=== PATIENT | male | born 1980 | race Caucasian/White ===

== ENCOUNTER 2022-12-04 21:47 | Emergency (ER) | payer BC ==
[2022-12-04 21:57] VITALS: BP 131/84; PULSE 92; RESP 16; TEMP 99.4
[2022-12-04] MEDS ORDERED: SODIUM CHLORIDE 0.9% 1,000 ML IV STA (22:04)
[2022-12-04] MEDS ORDERED: MORPHINE SULFATE 4 MG/ML SYRINGE IVP STA (22:05)
[2022-12-04 22:30] LABS: Basophils % (A) 0 %; Eosinophils # (A) 0.3 k/uL (0-0.7); Eosinophils % (A) 3 %; HCT 47.1 % (39.0-53.0); HGB 16.6 gm/dL (13.0-17.5); Lymphocytes # (A) 2.1 k/uL (1.0-4.8); Lymphocytes % (A) 17 %; MCHC 35.2 g/dL (31.0-37.0); Mean Platelet Volume 6.7; Monocytes # (A) 0.6 k/uL (0-1.0); Monocytes % (A) 5 %; Neutrophils # (A) 9.3 k/uL (1.3-7.7); Neutrophils % (A) 74 %; Platelet Count 238 k/uL (150-450); RBC 5.35 m/uL (4.30-5.90); RDW 12.4 % (11.5-15.5); WBC 12.5 k/uL (3.8-10.6)
[2022-12-04 22:41] LABS: ALT 34 U/L (4-49); AST 45 U/L (17-59); African American GFR (CKD) >90 (>60 ml/min/1.73 sqM); Albumin 4.6 g/dL (3.5-5.0); Alcohol <10 mg/dL; Alkaline Phosphatase 103 U/L (38-126); Anion Gap 7 mmol/L; Blood Urea Nitrogen 17 mg/dL (9-20); Calcium 9.3 mg/dL (8.4-10.2); Carbon Dioxide 32 mmol/L (22-30); Chloride 98 mmol/L (98-107); Glucose 93 mg/dL (74-99); Non-African American GFR(CKD) 89 (>60 ml/min/1.73 sqM); Sodium 137 mmol/L (137-145); Total Bilirubin 0.6 mg/dL (0.2-1.3); Total Protein 7.7 g/dL (6.3-8.2)
[2022-12-04 22:53] LABS: INR 0.9 (<1.2); Partial Thromboplastin Time 24.4 sec (22.0-30.0); Prothrombin Time 9.9 sec (9.0-12.0)
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
--- NOTE | 2022-12-04 23:47 | XR ---
EXAMINATION TYPE: XR chest 1V portable DATE OF EXAM: 12/04/2022 COMPARISON: None INDICATION: Trauma TECHNIQUE: Single frontal view of the chest is obtained. FINDINGS: The heart size is normal. Mediastinum appears normal. The pulmonary vasculature is normal. The lungs are clear. No pneumothorax is evident. No displaced rib fractures are identified. CT identified a nondisplaced l eft seventh rib fracture on the chest x-ray. IMPRESSION: 1. No acute pulmonary process.
[2022-12-04] MEDS ORDERED: ACET/COD 300 MG/30 MG STARTER PACK 6 TAB BTL PO STA (23:58)
[2022-12-04] MEDS ORDERED: IBUPROFEN 600 MG STARTER PACK 4 TAB BTL PO STA (23:58)
[2022-12-04] MEDS ORDERED: KETOROLAC 15 MG/ML 1 ML VIAL IVP STA (23:58)
== END 2022-12-05 00:40 | disposition home or self-care (01) ==
LOC: EC 21:47
DX: S22.32XA Fracture of one rib, left side, initial encounter for closed fracture (principal); F12.90 Cannabis use, unspecified, uncomplicated; V91.83XA Other injury due to other accident to other powered watercraft, initial encounter
CPT/HCPCS: 36415; 93005; 80053; 83605; 84484; 85025; 85610; 85730; 80320; 71045; 71260; 74177; 99285; 96374; 96361 ×4; 96375; J2270; J1885; Q9967